=== PATIENT | male | born 1990 | race Caucasian/White ===

== ENCOUNTER 2022-05-07 23:11 | Emergency (ER) | payer SELFPAY ==
[2022-05-08] MEDS ORDERED: Ketorolac 15 MG/ML SDV IVPUSH ONE (00:03)
== END 2022-05-08 01:36 | disposition home or self-care (01) ==
LOC: JD.ED 23:11
DX: S63.8X1A Sprain of other part of right wrist and hand, initial encounter (principal); F17.210 Nicotine dependence, cigarettes, uncomplicated; W22.09XA Striking against other stationary object, initial encounter; Y92.39 Other specified sports and athletic area as the place of occurrence of the external cause
CPT/HCPCS: 73090; 96374; 99284; J1885; 99282

== ENCOUNTER 2022-09-07 00:58 | Emergency (ER) | payer SELFPAY ==
[2022-09-07 04:47] LABS: ESTIMATED GFR 118 mL/min (>60)
== END 2022-09-07 06:36 | disposition home or self-care (01) ==
LOC: JD.ED 00:58
DX: N39.0 Urinary tract infection, site not specified (principal); F17.210 Nicotine dependence, cigarettes, uncomplicated; Z79.899 Other long term (current) drug therapy
CPT/HCPCS: 36415; 80053; 81001; 87086; 99283

== ENCOUNTER 2022-09-28 05:15 | Emergency (ER) | payer SELFPAY | END 2022-09-28 06:17 | disposition home or self-care (01) | LOC: JD.ED 05:15 | DX: R20.2 Paresthesia of skin (principal); R19.7 Diarrhea, unspecified; E66.9 Obesity, unspecified; Z68.35 Body mass index [BMI] 35.0-35.9, adult | CPT/HCPCS: 99284 ==

== ENCOUNTER 2023-01-23 13:48 | Emergency (ER) | payer SELFPAY ==
[2023-01-23] MEDS ORDERED: Sodium Chloride 0.9% 10 ML Syringe FLUSH PRN ×2 (14:23→14:47)
[2023-01-23] MEDS ORDERED: Iopamidol 612 MG/ML 100 ML Bottle IVPUSH ONE (14:47)
[2023-01-23 15:31] LABS: ESTIMATED GFR 104 mL/min (>60)
[2023-01-23 16:33] LABS: C. TRACHOMATIS BY PCR NOT DETECTED; N. GONORRHOEAE BY PCR NOT DETECTED
== END 2023-01-23 16:54 | disposition home or self-care (01) ==
LOC: JD.ED 13:48
DX: K52.9 Noninfective gastroenteritis and colitis, unspecified (principal); R25.3 Fasciculation; E66.9 Obesity, unspecified; Z68.37 Body mass index [BMI] 37.0-37.9, adult
CPT/HCPCS: 36415; 74177; 80053; 81001; 85025; 86140; 87491; 87591; 99284; J3490; Q9967

== ENCOUNTER 2024-08-29 05:30 | Emergency (ER) | payer BC, MEDICAID ==
[2024-08-29] MEDS ORDERED: Sodium Chloride 0.9% 10 ML Syringe FLUSH PRN (05:49)
[2024-08-29 05:53] LABS: BASOPHILS PERCENT AUTO 0.3 % (0.0-1.0); EOSINOPHILS PERCENT AUTO 0.1 % (0.0-6.0); HEMATOCRIT 41.5 % (42.0-52.0); HEMOGLOBIN 14.1 gm/dl (14.0-18.0); IMMATURE GRAN ABSOLUTE AUTO 0.03 K/mm3 (0.00-0.05); IMMATURE GRAN PERCENT AUTO 0.3 % (0.0-0.4); LYMPHOCYTES ABSOLUTE AUTO 1.7 K/mm3 (1.0-4.8); LYMPHOCYTES PERCENT AUTO 14.5 % (24.0-44.0); MEAN CORPUSCULAR HEMOGLOBIN 26.8 pg (28.0-32.0); MEAN CORPUSCULAR VOLUME 78.7 fl (83.0-99.0); MEAN PLATELET VOLUME 10.6 fl (9.4-12.4); MONOCYTES ABSOLUTE AUTO 0.8 K/mm3 (0.0-0.8); MONOCYTES PERCENT AUTO 7.2 % (0.0-8.0); NEUTROPHILS ABSOLUTE AUTO 9.1 K/mm3 (1.8-7.7); NEUTROPHILS PERCENT AUTO 77.6 % (41.0-71.0); PLATELET COUNT,PLT 249 K/mm3 (150-400); RED BLOOD CELL COUNT 5.27 M/mm3 (4.52-5.90); WHITE BLOOD CELL COUNT,WBC 11.71 K/mm3 (3.9-11.3)
[2024-08-29] MEDS: fentaNYL 100 MCG/2 ML SDV IVPUSH ONE (05:56)
[2024-08-29] MEDS: Sodium Chloride 0.9% 1,000 ML IV ONE ×2 (05:56→08:30)
[2024-08-29 06:21] LABS: A/G RATIO 1.3 (1-2); ALANINE AMINOTRANSFERASE,ALT 51 U/L (16-63); ALBUMIN 3.9 g/dl (3.4-5.0); ALKALINE PHOSPHATASE 67 U/L (46-116); ANION GAP 15.7 (5-15); ASPARTATE AMNIOTRANSFERASE,AST 96 U/L (15-37); BILIRUBIN TOTAL 0.6 mg/dL (0.2-1.0); BLOOD UREA NITROGEN,BUN 10 mg/dL (7-18); BUN/CREATININE RATIO 11.1 (14-18); CALCIUM 8.7 mg/dL (8.5-10.1); CARBON DIOXIDE,CO2 25 mEq/L (21-32); CHLORIDE,CL 104 mEq/L (98-107); CREATININE 0.9 mg/dL (0.7-1.3); ESTIMATED GFR 116 mL/min (>60); ETHANOL BLOOD MEDICAL 0.02 gm% (0.00); GLUCOSE RANDOM 88 mg/dL (70-99); LIPASE 23 U/L (16-77); MAGNESIUM 1.9 mg/dL (1.8-2.4); POTASSIUM,K 3.7 mEq/L (3.5-5.1); SODIUM,NA 141 mEq/L (136-145)
[2024-08-29 06:29] LABS: CREATINE KINASE,CK 5299 U/L (39-308)
[2024-08-29] MEDS: Iopamidol 755 Mg/ML 100 ML Bottle IVPUSH ONE (06:29)
[2024-08-29] MEDS: HYDROmorphone 0.5 MG/0.5 ML Syringe IVPUSH ONE (08:42)
[2024-08-29] MEDS: Metoclopramide 10 MG/2 ML SDV IVPUSH ONE (08:42)
== END 2024-08-29 09:24 | disposition home or self-care (01) ==
LOC: JD.ED 05:30
DX: S02.2XXA Fracture of nasal bones, initial encounter for closed fracture (principal); S00.93XA Contusion of unspecified part of head, initial encounter; S00.532A Contusion of oral cavity, initial encounter; Y04.8XXA Assault by other bodily force, initial encounter; Z79.899 Other long term (current) drug therapy
CPT/HCPCS: 36415; 70450; 70486; 70498; 73562; 80053; 80307; 82550; 83690; 83735; 85025; 93005; 96361; 96374; 96375; 99285; J1171; J2765; J3010; J7030; Q9967